=== PATIENT | female | born 1965 | race Caucasian/White ===

== ENCOUNTER 2017-08-02 11:34 | Inpatient (IN) ==
[2017-08-02 17:19] LABS: Basophils # 0.1 10*3/uL (0.0-0.2); Basophils % 0.6 % (0.0-0.8); Eosinophils # 0.1 10*3/uL (0.0-0.87); Eosinophils % 0.4 % (0.00-10.9); Hematocrit 23.7 VOL% (35.7-47.0); Hemoglobin 7.7 GM/DL (12.0-16.0); Immature Granulocytes % 1.5 %; Immature Granulocytes Absolute 0.33 #; Lymphocytes # 1.2 10*3/uL (1.4-4.0); Lymphocytes % 5.4 % (21.3-54.2); Mean Corpuscular HGB Conc 32.5 GM/DL (32-36); Mean Corpuscular Hemoglobin 29 PG (27-34); Mean Corpuscular Volume 88.1 FL (87-102); Mean Platelet Volume 8.5 FL (9.6-12.0); Monocytes % 4.7 % (1.7-12.7); Neutrophils # 18.9 10*3/uL (1.4-7.4); Neutrophils % 87.4 % (38.7-73.9); Platelet Count 354 T/CUMM (130-400); Red Blood Count 2.69 MC/CUMM (3.8-5.5); Red Cell Distribution Width 14.6 % (9.3-17.3); White Blood Count 21.6 T/CUMM (4-12)
[2017-08-02 17:43] LABS: Albumin 1.7 G/DL (3.4-5.0); Bilirubin,Direct 0.17 MG/DL (0.0-0.20); Bilirubin,Indirect 0.2 MG/DL (0.0-1.0); Bilirubin,Total 0.4 MG/DL (0.2-1.0); Calcium 7.8 MG/DL (8.5-10.1); Osmolality,Calculated 278.8 MOS/KG (273-304); Potassium 3.9 MMOL/L (3.5-5.1); Total Protein 5.3 G/DL (6.4-8.3)
[2017-08-02] MEDS ORDERED: ACETAMINOPHEN 325 MG TABLET PO PRN (18:09)
[2017-08-02] MEDS ORDERED: ONDANSETRON 4 MG/2 ML VIAL IV PRN (18:43)
[2017-08-02] MEDS ORDERED: MORPHINE 4 MG/1 ML VIAL IV PRN (18:45)
[2017-08-02 19:04] LABS: Lymphocytes 4 % (20-55); Platelet Estimate Normal; Segmented Neutrophils 95 % (50-85); Total Cells Counted 100
[2017-08-02] MEDS: SODIUM CHLORIDE 0.9% 1,000 ML IV SCH (19:24)
[2017-08-02] MEDS: HYDROmorphone 2 MG/1 ML VIAL IV PRN ×2 (19:43→23:53)
[2017-08-02 22:53] LABS: INR 1.2; PT Patient Result 12.5 SECS
[2017-08-02] MEDS: SODIUM BICARBONATE 650 MG TABLET PO SCH (23:53)
[2017-08-03] MEDS: ONDANSETRON 4 MG/2 ML VIAL IV PRN ×4 (00:46→20:22)
[2017-08-03] MEDS: HYDROmorphone 2 MG/1 ML VIAL IV PRN ×6 (05:47→20:22)
[2017-08-03] MEDS ORDERED: LEVOFLOXACIN INJ 500 MG in PREMIX 1 EACH IV ONE (06:30)
[2017-08-03] MEDS ORDERED: DIAZEPAM 5 MG TABLET PO ONE (07:25)
[2017-08-03] MEDS ORDERED: FAMOTIDINE 20 MG TABLET PO ONE (07:25)
[2017-08-03] MEDS ORDERED: LACTATED RINGERS 1,000 ML IV SCH (07:30)
[2017-08-03 08:34] LABS: Basophils # 0.1 10*3/uL (0.0-0.2); Basophils % 0.5 % (0.0-0.8); Eosinophils # 0.1 10*3/uL (0.0-0.87); Eosinophils % 0.3 % (0.00-10.9); Hemoglobin 7.3 GM/DL (12.0-16.0); Immature Granulocytes % 1.4 %; Immature Granulocytes Absolute 0.29 #; Lymphocytes # 1.1 10*3/uL (1.4-4.0); Lymphocytes % 5.4 % (21.3-54.2); Mean Corpuscular HGB Conc 31.7 GM/DL (32-36); Mean Corpuscular Hemoglobin 29 PG (27-34); Mean Corpuscular Volume 90.2 FL (87-102); Mean Platelet Volume 8.3 FL (9.6-12.0); Monocytes # 1.1 10*3/uL (0.11-0.8); Monocytes % 5.5 % (1.7-12.7); Neutrophils # 17.9 10*3/uL (1.4-7.4); Neutrophils % 86.9 % (38.7-73.9); Platelet Count 315 T/CUMM (130-400); Red Blood Count 2.55 MC/CUMM (3.8-5.5); Red Cell Distribution Width 14.6 % (9.3-17.3); White Blood Count 20.6 T/CUMM (4-12)
[2017-08-03 08:59] LABS: Albumin 1.3 G/DL (3.4-5.0); Bilirubin,Direct 0.1 MG/DL (0.0-0.20); Bilirubin,Indirect 0.5 MG/DL (0.0-1.0); Bilirubin,Total 0.6 MG/DL (0.2-1.0); Calcium 7.4 MG/DL (8.5-10.1); Osmolality,Calculated 275.1 MOS/KG (273-304)
[2017-08-03 09:26] LABS: Eosinophils 1 % (0-10); Lymphocytes 3 % (20-55); Segmented Neutrophils 93 % (50-85); Total Cells Counted 100
[2017-08-03 09:27] LABS: Burr Cells Few; Hypochromasia 1+; Microcytosis Slight; Platelet Estimate Normal
[2017-08-03 10:23] LABS: Neutrophils,Peritoneal Fluid 40 %; RBC,Peritoneal Fluid < 1 T/CUMM
[2017-08-03] MEDS ORDERED: SODIUM CHLORIDE 0.9% 250 ML IV SCH (10:30)
[2017-08-03] MEDS ORDERED: LEVOFLOXACIN INJ 100 ML IV ONE (11:08)
[2017-08-03] MEDS ORDERED: SUGAMMADEX 200 MG/2 ML VIAL IV ONE (11:44)
[2017-08-03] MEDS ORDERED: ONDANSETRON 4 MG/2 ML VIAL ONE ×2 (11:48→11:56)
[2017-08-03] MEDS ORDERED: HYDROmorphone 2 MG/1 ML VIAL ONE (11:48)
[2017-08-03] MEDS ORDERED: ONDANSETRON 4 MG/2 ML VIAL IV PRN (11:49)
[2017-08-03] MEDS ORDERED: fentaNYL 100 MCG/2 ML VIAL ONE (11:53)
[2017-08-03] MEDS ORDERED: MIDAZOLAM 2 MG/2 ML VIAL ONE (11:55)
[2017-08-03] MEDS ORDERED: SEVOFLURANE 1 UNIT/15 MINUTE INH ONE (11:55)
[2017-08-03] MEDS ORDERED: PROPOFOL 200 MG/20 ML VIAL IV ONE (11:55)
[2017-08-03] MEDS ORDERED: DEXAMETHASONE 4 MG/1 ML VIAL ONE (11:55)
[2017-08-03] MEDS ORDERED: GLYCOPYRROLATE 0.4 MG/2 ML VIAL ONE (11:56)
[2017-08-03] MEDS ORDERED: ROCURONIUM 100 MG/10 ML VIAL IV ONE (11:56)
[2017-08-03] MEDS ORDERED: SODIUM CHLORIDE 0.9% 100 ML IV ONE (11:56)
[2017-08-03] MEDS ORDERED: PHENYLEPHRINE 1 MG/10 ML SYRINGE IV ONE (11:56)
[2017-08-03] MEDS ORDERED: NEOSTIGMINE 10 MG/10 ML VIAL ONE (11:56)
[2017-08-03] MEDS: DEXTROSE 5% NACL 0.9% 1,000 ML IV SCH ×2 (12:33→20:14)
[2017-08-03] MEDS ORDERED: FLUCONAZOLE 200 MG TABLET PO ONE (13:14)
[2017-08-03] MEDS: SEVELAMER CARBONATE 800 MG TABLET PO SCH ×3 (13:16→16:44)
[2017-08-03] MEDS: SODIUM BICARBONATE 650 MG TABLET PO SCH ×2 (13:25→20:15)
[2017-08-03] MEDS: CALCITRIOL 0.25 MCG CAPSULE PO SCH (13:25)
[2017-08-03] MEDS: PANTOPRAZOLE 40 MG VIAL IV SCH (13:26)
[2017-08-03] MEDS ORDERED: DEXTROSE 50% 25 GM/50 ML VIAL IV PRN (13:58)
[2017-08-03] MEDS ORDERED: GLUCAGON 1 MG VIAL IM PRN (13:58)
[2017-08-03 14:02] LABS: Apearance,Urine CLOUDY (Clear); Bilirubin,Urine Negative (Negative); Blood, Urine Moderate mg/dL (Negative); Glucose,Urine (UA) Negative (Negative); Ketones,Urine Negative (Negative); Nitrite,Urine Negative (Negative); Protein,Urine Negative; RBC,Urine 15 /HPF (0-4); Squamous Epithelial Cell,Urine Occasional /HPF (0-10); Urine Color Straw (Yellow); Urine Specific Gravity 1.004 (1.001-1.035); Urine Urobilinogen < 2.0 EU/DL (0.2-1.0); WBC,Urine 300 /HPF (0-6)
[2017-08-03] MEDS ORDERED: LIDOCAINE 2% TOP JELLY 5 ML TUBE TOP ONE (16:14)
[2017-08-03] MEDS: BACITRACIN OINT 0.9 GM PACK TOP SCH (16:44)
[2017-08-03] MEDS: miSOPROStol 200 MCG TABLET PO SCH ×2 (16:44→20:15)
[2017-08-03] MEDS: SODIUM CHLORIDE 0.9% 1,000 ML IV SCH (19:51)
[2017-08-03] MEDS: ZINC OXIDE PASTE 113 GM TUBE TOP SCH (20:18)
[2017-08-04] MEDS: ONDANSETRON 4 MG/2 ML VIAL IV PRN ×5 (01:36→20:39)
[2017-08-04] MEDS: HYDROmorphone 2 MG/1 ML VIAL IV PRN ×5 (01:37→20:38)
[2017-08-04] MEDS: SODIUM CHLORIDE 0.9% 1,000 ML IV SCH ×2 (03:31→23:23)
[2017-08-04 06:50] LABS: Basophils % 0.3 % (0.0-0.8); Eosinophils % 0.1 % (0.00-10.9); Hematocrit 19.5 VOL% (35.7-47.0); Immature Granulocytes % 1.2 %; Immature Granulocytes Absolute 0.14 #; Lymphocytes # 0.7 10*3/uL (1.4-4.0); Lymphocytes % 6.3 % (21.3-54.2); Mean Corpuscular HGB Conc 32.3 GM/DL (32-36); Mean Corpuscular Hemoglobin 28 PG (27-34); Mean Corpuscular Volume 87.4 FL (87-102); Mean Platelet Volume 8.6 FL (9.6-12.0); Monocytes # 0.6 10*3/uL (0.11-0.8); Monocytes % 4.8 % (1.7-12.7); Neutrophils % 87.3 % (38.7-73.9); Platelet Count 261 T/CUMM (130-400); Red Blood Count 2.23 MC/CUMM (3.8-5.5); Red Cell Distribution Width 14.6 % (9.3-17.3); White Blood Count 11.4 T/CUMM (4-12)
[2017-08-04 07:00] LABS: Hemoglobin 6.3 GM/DL (12.0-16.0)
[2017-08-04 07:22] LABS: Albumin 1.4 G/DL (3.4-5.0); Osmolality,Calculated 283.7 MOS/KG (273-304); Potassium 3.9 MMOL/L (3.5-5.1)
[2017-08-04 07:27] LABS: Alanine Aminotransferase < 9 U/L (13-56); Albumin 1.6 G/DL (3.4-5.0); Alkaline Phosphatase 120 U/L (45-117); Aspartate Amino Transferase 4 U/L (0-37); Bilirubin,Indirect 0.5 MG/DL (0.0-1.0); Total Protein 4.4 G/DL (6.4-8.3)
[2017-08-04] MEDS: SODIUM BICARBONATE 650 MG TABLET PO SCH ×2 (08:51→20:32)
[2017-08-04] MEDS: PANTOPRAZOLE 40 MG VIAL IV SCH (08:51)
[2017-08-04] MEDS: SEVELAMER CARBONATE 800 MG TABLET PO SCH ×3 (08:51→17:13)
[2017-08-04] MEDS: miSOPROStol 200 MCG TABLET PO SCH ×4 (08:51→20:32)
[2017-08-04] MEDS ORDERED: SODIUM CHLORIDE 0.9% 1,000 ML IV PRN (08:52)
[2017-08-04] MEDS ORDERED: BACITRACIN OINT 0.9 GM PACK TOP SCH (09:00)
[2017-08-04] MEDS: ZINC OXIDE PASTE 113 GM TUBE TOP SCH ×2 (10:00→20:19)
[2017-08-04] MEDS: FUROSEMIDE 20 MG/2 ML VIAL IV PRN (15:28)
[2017-08-04] MEDS: DESITIN 4OZ/NYSTATIN 15 GRAM MIXTURE PASTE TOP SCH ×2 (15:52→20:19)
[2017-08-04] MEDS: BACITRACIN OINT 0.9 GM PACK TOP SCH (15:53)
[2017-08-04] MEDS: DEXTROSE 5% NACL 0.9% 1,000 ML IV SCH (19:02)
[2017-08-04 23:24] LABS: Hematocrit 31.2 VOL% (35.7-47.0); Hemoglobin 10.3 GM/DL (12.0-16.0)
[2017-08-05] MEDS: HYDROmorphone 2 MG/1 ML VIAL IV PRN ×6 (00:42→22:10)
[2017-08-05] MEDS: ONDANSETRON 4 MG/2 ML VIAL IV PRN ×5 (00:43→18:08)
[2017-08-05] MEDS: CIPROFLOXACIN INJ 400 MG in PREMIX 1 EACH IV SCH ×3 (00:43→20:12)
[2017-08-05] MEDS ORDERED: FUROSEMIDE 20 MG/2 ML VIAL IV ONE (02:00)
[2017-08-05] MEDS: FUROSEMIDE 20 MG/2 ML VIAL IV PRN (02:00)
[2017-08-05 06:32] LABS: Basophils # 0.1 10*3/uL (0.0-0.2); Basophils % 0.7 % (0.0-0.8); Eosinophils # 0.3 10*3/uL (0.0-0.87); Eosinophils % 2.2 % (0.00-10.9); Hemoglobin 10.4 GM/DL (12.0-16.0); Immature Granulocytes % 1.6 %; Immature Granulocytes Absolute 0.19 #; Lymphocytes # 1.8 10*3/uL (1.4-4.0); Lymphocytes % 14.9 % (21.3-54.2); Mean Corpuscular HGB Conc 33.5 GM/DL (32-36); Mean Corpuscular Hemoglobin 28 PG (27-34); Mean Corpuscular Volume 83.6 FL (87-102); Mean Platelet Volume 8.6 FL (9.6-12.0); Monocytes # 0.9 10*3/uL (0.11-0.8); Monocytes % 7.5 % (1.7-12.7); Neutrophils # 8.8 10*3/uL (1.4-7.4); Neutrophils % 73.1 % (38.7-73.9); Platelet Count 243 T/CUMM (130-400); Red Blood Count 3.71 MC/CUMM (3.8-5.5); Red Cell Distribution Width 14.8 % (9.3-17.3)
[2017-08-05 06:57] LABS: Albumin 1.4 G/DL (3.4-5.0); Albumin 1.5 G/DL (3.4-5.0); Bilirubin,Direct 0.15 MG/DL (0.0-0.20); Bilirubin,Indirect 0.5 MG/DL (0.0-1.0); Bilirubin,Total 0.6 MG/DL (0.2-1.0); Calcium 7.3 MG/DL (8.5-10.1); Osmolality,Calculated 274.2 MOS/KG (273-304); Potassium 3.4 MMOL/L (3.5-5.1); Total Protein 4.6 G/DL (6.4-8.3)
[2017-08-05] MEDS ORDERED: POTASSIUM CHLORIDE 20 MEQ TABLET PO PRN (07:56)
[2017-08-05] MEDS: PANTOPRAZOLE 40 MG VIAL IV SCH (09:33)
[2017-08-05] MEDS: SODIUM BICARBONATE 650 MG TABLET PO SCH ×2 (09:33→20:14)
[2017-08-05] MEDS: SEVELAMER CARBONATE 800 MG TABLET PO SCH ×3 (09:34→18:23)
[2017-08-05] MEDS: BACITRACIN OINT 0.9 GM PACK TOP SCH (09:34)
[2017-08-05] MEDS: miSOPROStol 200 MCG TABLET PO SCH ×4 (09:34→20:14)
[2017-08-05] MEDS: FLUCONAZOLE 200 MG TABLET PO SCH (09:34)
[2017-08-05] MEDS: ZINC OXIDE PASTE 113 GM TUBE TOP SCH ×2 (09:36→21:45)
[2017-08-05] MEDS: DESITIN 4OZ/NYSTATIN 15 GRAM MIXTURE PASTE TOP SCH ×2 (09:36→21:45)
[2017-08-05] MEDS: DEXTROSE 5% NACL 0.9% 1,000 ML IV SCH (12:38)
[2017-08-05] MEDS ORDERED: ALBUMIN 25% 25 GM in PREMIX 1 EACH IV SCH (14:00)
[2017-08-05] MEDS: ALBUMIN 25% 25 GM in PREMIX 1 EACH IV SCH (15:45)
[2017-08-05] MEDS: PROMETHAZINE 25 MG/1 ML VIAL IM PRN ×2 (15:45→22:11)
[2017-08-06] MEDS: ALBUMIN 25% 25 GM in PREMIX 1 EACH IV SCH ×2 (03:08→13:39)
[2017-08-06] MEDS: PROMETHAZINE 25 MG/1 ML VIAL IM PRN ×4 (03:19→16:22)
[2017-08-06] MEDS: HYDROmorphone 2 MG/1 ML VIAL IV PRN ×5 (03:19→21:18)
[2017-08-06 07:58] LABS: Basophils # 0.1 10*3/uL (0.0-0.2); Basophils % 0.6 % (0.0-0.8); Eosinophils # 0.4 10*3/uL (0.0-0.87); Eosinophils % 3.4 % (0.00-10.9); Hematocrit 26.2 VOL% (35.7-47.0); Hemoglobin 8.9 GM/DL (12.0-16.0); Immature Granulocytes % 1.4 %; Immature Granulocytes Absolute 0.14 #; Lymphocytes # 1.1 10*3/uL (1.4-4.0); Mean Corpuscular Hemoglobin 28 PG (27-34); Mean Corpuscular Volume 83.2 FL (87-102); Monocytes # 0.6 10*3/uL (0.11-0.8); Monocytes % 5.9 % (1.7-12.7); Neutrophils % 77.7 % (38.7-73.9); Platelet Count 196 T/CUMM (130-400); Red Blood Count 3.15 MC/CUMM (3.8-5.5); Red Cell Distribution Width 14.9 % (9.3-17.3); White Blood Count 10.3 T/CUMM (4-12)
[2017-08-06 08:25] LABS: Albumin 2.2 G/DL (3.4-5.0)
[2017-08-06 08:29] LABS: Alanine Aminotransferase < 6 U/L (13-56); Albumin 2.5 G/DL (3.4-5.0); Alkaline Phosphatase 78 U/L (45-117); Aspartate Amino Transferase 7 U/L (0-37); Bilirubin,Indirect 0.6 MG/DL (0.0-1.0); Blood Urea Nitrogen 36 MG/DL (7-18); Calcium 7.1 MG/DL (8.5-10.1); Glucose 76 MG/DL (74-106); Osmolality,Calculated 274.2 MOS/KG (273-304); Potassium 2.9 MMOL/L (3.5-5.1); Sodium 134 MMOL/L (136-145); Total Protein 4.3 G/DL (6.4-8.3)
[2017-08-06] MEDS: SODIUM CHLORIDE 0.9% 1,000 ML IV SCH (09:14)
[2017-08-06] MEDS: FLUCONAZOLE 200 MG TABLET PO SCH (09:15)
[2017-08-06] MEDS: SEVELAMER CARBONATE 800 MG TABLET PO SCH ×2 (09:15→11:43)
[2017-08-06] MEDS: SODIUM BICARBONATE 650 MG TABLET PO SCH ×4 (09:15→20:18)
[2017-08-06] MEDS: CALCITRIOL 0.25 MCG CAPSULE PO SCH (09:15)
[2017-08-06] MEDS: miSOPROStol 200 MCG TABLET PO SCH ×4 (09:15→20:18)
[2017-08-06] MEDS: PANTOPRAZOLE 40 MG VIAL IV SCH (09:16)
[2017-08-06] MEDS: ZINC OXIDE PASTE 113 GM TUBE TOP SCH ×2 (09:20→21:26)
[2017-08-06] MEDS: DESITIN 4OZ/NYSTATIN 15 GRAM MIXTURE PASTE TOP SCH ×2 (09:20→21:26)
[2017-08-06] MEDS ORDERED: MAGNESIUM SULF RIDER 2 GM in PREMIX 1 EACH IV PRN (10:20)
[2017-08-06] MEDS ORDERED: MAGNESIUM SULF RIDER 4 GM in PREMIX 1 EACH IV PRN (10:20)
[2017-08-06] MEDS: ONDANSETRON 4 MG/2 ML VIAL IV PRN ×3 (10:28→21:23)
[2017-08-06] MEDS: BACITRACIN OINT 0.9 GM PACK TOP SCH (10:28)
[2017-08-06] MEDS: POTASSIUM CHLORIDE RIDER 10 MEQ in PREMIX 1 EACH IV PRN ×4 (10:50→22:31)
[2017-08-06] MEDS: SPIRONOLACTONE 50 MG TABLET PO SCH (13:30)
[2017-08-06] MEDS: CIPROFLOXACIN INJ 400 MG in PREMIX 1 EACH IV SCH (15:29)
[2017-08-06] MEDS ORDERED: PROMETHAZINE 25 MG/1 ML VIAL IM PRN (17:24)
[2017-08-06] MEDS: METOCLOPRAMIDE 10 MG/2 ML VIAL IV SCH (18:48)
[2017-08-06] MEDS: POTASSIUM CHLORIDE 20 MEQ TABLET PO SCH (20:18)
[2017-08-07] MEDS: METOCLOPRAMIDE 10 MG/2 ML VIAL IV SCH ×3 (00:42→11:58)
[2017-08-07] MEDS: POTASSIUM CHLORIDE RIDER 10 MEQ in PREMIX 1 EACH IV PRN (00:44)
[2017-08-07] MEDS: HYDROmorphone 2 MG/1 ML VIAL IV PRN ×4 (01:21→20:43)
[2017-08-07] MEDS: ONDANSETRON 4 MG/2 ML VIAL IV PRN ×4 (01:24→18:41)
[2017-08-07] MEDS: ALBUMIN 25% 25 GM in PREMIX 1 EACH IV SCH ×3 (05:28→22:41)
[2017-08-07 07:05] LABS: Basophils # 0.1 10*3/uL (0.0-0.2); Basophils % 0.4 % (0.0-0.8); Eosinophils # 0.5 10*3/uL (0.0-0.87); Eosinophils % 3.6 % (0.00-10.9); Hematocrit 28.8 VOL% (35.7-47.0); Hemoglobin 9.9 GM/DL (12.0-16.0); Immature Granulocytes % 1.6 %; Immature Granulocytes Absolute 0.22 #; Lymphocytes # 1.5 10*3/uL (1.4-4.0); Lymphocytes % 11.1 % (21.3-54.2); Mean Corpuscular HGB Conc 34.4 GM/DL (32-36); Mean Corpuscular Hemoglobin 28 PG (27-34); Mean Corpuscular Volume 82.1 FL (87-102); Mean Platelet Volume 9.1 FL (9.6-12.0); Monocytes # 0.7 10*3/uL (0.11-0.8); Monocytes % 5.3 % (1.7-12.7); Neutrophils # 10.4 10*3/uL (1.4-7.4); Platelet Count 189 T/CUMM (130-400); Red Blood Count 3.51 MC/CUMM (3.8-5.5); Red Cell Distribution Width 14.6 % (9.3-17.3); White Blood Count 13.4 T/CUMM (4-12)
[2017-08-07 07:30] LABS: Apearance,Urine CLOUDY (Clear); Bacteria,Urine Occasional /HPF (Few); Bilirubin,Urine Negative (Negative); Blood, Urine Large mg/dL (Negative); Glucose,Urine (UA) Negative (Negative); Ketones,Urine Negative (Negative); Mucus,Urine Occasional /LPF (Occasional); Nitrite,Urine Negative (Negative); Protein,Urine 100 MG/DL; RBC,Urine 127 /HPF (0-4); Urine Color Yellow (Yellow); Urine Specific Gravity 1.008 (1.001-1.035); Urine Urobilinogen < 2.0 EU/DL (0.2-1.0); WBC,Urine 179 /HPF (0-6)
[2017-08-07 07:39] LABS: Calcium 7.1 MG/DL (8.5-10.1); Osmolality,Calculated 273.2 MOS/KG (273-304); Potassium 3.7 MMOL/L (3.5-5.1)
[2017-08-07] MEDS: SODIUM BICARBONATE 650 MG TABLET PO SCH ×3 (09:37→20:32)
[2017-08-07] MEDS: FLUCONAZOLE 200 MG TABLET PO SCH (09:37)
[2017-08-07] MEDS: PANTOPRAZOLE 40 MG VIAL IV SCH (09:38)
[2017-08-07] MEDS: SPIRONOLACTONE 50 MG TABLET PO SCH (09:38)
[2017-08-07] MEDS: BACITRACIN OINT 0.9 GM PACK TOP SCH (09:38)
[2017-08-07] MEDS: POTASSIUM CHLORIDE 20 MEQ TABLET PO SCH ×2 (09:38→20:32)
[2017-08-07] MEDS: miSOPROStol 200 MCG TABLET PO SCH ×4 (09:38→20:32)
[2017-08-07] MEDS: DESITIN 4OZ/NYSTATIN 15 GRAM MIXTURE PASTE TOP SCH ×2 (09:42→20:46)
[2017-08-07] MEDS: ZINC OXIDE PASTE 113 GM TUBE TOP SCH ×2 (09:42→20:33)
[2017-08-07] MEDS: PROMETHAZINE 25 MG/1 ML VIAL IM PRN ×2 (11:49→20:27)
[2017-08-07] MEDS: SODIUM CHLORIDE 0.9% 1,000 ML IV SCH (12:04)
[2017-08-07 12:51] LABS: Smooth Muscle Antibody Negative (Negative)
[2017-08-07 16:21] LABS: Myeloperoxidase Antibody < 0.2 U
[2017-08-07] MEDS: METOCLOPRAMIDE 10 MG/10 ML UDCUP PO SCH ×2 (16:23→20:31)
[2017-08-08] MEDS: ONDANSETRON 4 MG/2 ML VIAL IV PRN ×5 (01:07→23:56)
[2017-08-08] MEDS: PROMETHAZINE 25 MG/1 ML VIAL IM PRN (02:57)
[2017-08-08] MEDS: HYDROmorphone 2 MG/1 ML VIAL IV PRN (02:59)
[2017-08-08] MEDS: ALBUMIN 25% 25 GM in PREMIX 1 EACH IV SCH ×3 (05:32→21:35)
[2017-08-08 06:55] LABS: Basophils # 0.1 10*3/uL (0.0-0.2); Basophils % 0.5 % (0.0-0.8); Eosinophils # 0.7 10*3/uL (0.0-0.87); Eosinophils % 5.1 % (0.00-10.9); Hematocrit 26.1 VOL% (35.7-47.0); Hemoglobin 8.9 GM/DL (12.0-16.0); Immature Granulocytes % 1.6 %; Immature Granulocytes Absolute 0.23 #; Lymphocytes # 1.4 10*3/uL (1.4-4.0); Lymphocytes % 9.8 % (21.3-54.2); Mean Corpuscular HGB Conc 34.1 GM/DL (32-36); Mean Corpuscular Hemoglobin 28 PG (27-34); Mean Corpuscular Volume 82.9 FL (87-102); Mean Platelet Volume 9.6 FL (9.6-12.0); Monocytes # 0.7 10*3/uL (0.11-0.8); Monocytes % 4.9 % (1.7-12.7); Neutrophils # 11.2 10*3/uL (1.4-7.4); Neutrophils % 78.1 % (38.7-73.9); Platelet Count 139 T/CUMM (130-400); Red Blood Count 3.15 MC/CUMM (3.8-5.5); Red Cell Distribution Width 14.6 % (9.3-17.3); White Blood Count 14.4 T/CUMM (4-12)
[2017-08-08 07:04] LABS: Alanine Aminotransferase < 6 U/L (13-56); Albumin 2.9 G/DL (3.4-5.0); Alkaline Phosphatase 65 U/L (45-117); Aspartate Amino Transferase 6 U/L (0-37); Blood Urea Nitrogen 31 MG/DL (7-18); Calcium 7.5 MG/DL (8.5-10.1); Glucose 78 MG/DL (74-106); Osmolality,Calculated 275.1 MOS/KG (273-304); Potassium 3.9 MMOL/L (3.5-5.1); Sodium 135 MMOL/L (136-145); Total Protein 4.4 G/DL (6.4-8.3)
[2017-08-08] MEDS ORDERED: PANTOPRAZOLE 40 MG TABLET PO SCH (09:00)
[2017-08-08] MEDS: SODIUM CHLORIDE 0.9% 1,000 ML IV SCH (09:21)
[2017-08-08] MEDS: SPIRONOLACTONE 50 MG TABLET PO SCH (09:21)
[2017-08-08] MEDS: ZINC OXIDE PASTE 113 GM TUBE TOP SCH ×2 (09:22→21:04)
[2017-08-08] MEDS: BACITRACIN OINT 0.9 GM PACK TOP SCH (09:24)
[2017-08-08] MEDS: DESITIN 4OZ/NYSTATIN 15 GRAM MIXTURE PASTE TOP SCH ×2 (09:25→21:03)
[2017-08-08] MEDS: FLUCONAZOLE 200 MG TABLET PO SCH (10:25)
[2017-08-08] MEDS: SODIUM BICARBONATE 650 MG TABLET PO SCH ×3 (10:25→21:01)
[2017-08-08] MEDS: METOCLOPRAMIDE 10 MG/10 ML UDCUP PO SCH ×4 (10:25→21:03)
[2017-08-08] MEDS: CALCITRIOL 0.25 MCG CAPSULE PO SCH (10:26)
[2017-08-08] MEDS: miSOPROStol 200 MCG TABLET PO SCH ×4 (10:26→21:04)
[2017-08-08] MEDS: POTASSIUM CHLORIDE 20 MEQ TABLET PO SCH ×2 (10:26→21:03)
[2017-08-08] MEDS: CITRIC ACID/SODIUM CITRATE 30 ML UDCUP PO SCH ×3 (10:27→21:04)
[2017-08-08] MEDS: MAGNESIUM CHLORIDE 64 MG TABLET PO SCH ×2 (14:12→21:02)
[2017-08-08] MEDS ORDERED: PROMETHAZINE 25 MG SUPP RECTAL ONE (17:30)
[2017-08-08] MEDS: SODIUM BICARB INJ 150 MEQ in DEXTROSE 5% 850 ML IV SCH (20:00)
[2017-08-08] MEDS ORDERED: ZALEPLON 5 MG CAPSULE PO SCH (21:00)
[2017-08-08] MEDS: PANTOPRAZOLE 40 MG TABLET PO SCH (21:03)
[2017-08-09] MEDS ORDERED: PROMETHAZINE 25 MG SUPP RECTAL ONE (01:23)
[2017-08-09] MEDS: ONDANSETRON 4 MG/2 ML VIAL IV PRN ×2 (06:10→16:42)
[2017-08-09 07:21] LABS: Basophils # 0.1 10*3/uL (0.0-0.2); Basophils % 0.4 % (0.0-0.8); Hematocrit 25.2 VOL% (35.7-47.0); Hemoglobin 8.8 GM/DL (12.0-16.0); Immature Granulocytes % 1.4 %; Immature Granulocytes Absolute 0.16 #; Lymphocytes # 1.5 10*3/uL (1.4-4.0); Lymphocytes % 13.1 % (21.3-54.2); Mean Corpuscular HGB Conc 34.9 GM/DL (32-36); Mean Corpuscular Hemoglobin 28 PG (27-34); Mean Corpuscular Volume 80.5 FL (87-102); Mean Platelet Volume 9.5 FL (9.6-12.0); Monocytes # 0.6 10*3/uL (0.11-0.8); Monocytes % 4.9 % (1.7-12.7); Neutrophils # 8.3 10*3/uL (1.4-7.4); Neutrophils % 71.2 % (38.7-73.9); Platelet Count 168 T/CUMM (130-400); Red Blood Count 3.13 MC/CUMM (3.8-5.5); Red Cell Distribution Width 14.6 % (9.3-17.3); White Blood Count 11.6 T/CUMM (4-12)
[2017-08-09 07:44] LABS: Alanine Aminotransferase < 6 U/L (13-56); Albumin 2.9 G/DL (3.4-5.0); Alkaline Phosphatase 59 U/L (45-117); Aspartate Amino Transferase 6 U/L (0-37); Blood Urea Nitrogen 30 MG/DL (7-18); Calcium 7.5 MG/DL (8.5-10.1); Glucose 67 MG/DL (74-106); Osmolality,Calculated 276.8 MOS/KG (273-304); Potassium 3.4 MMOL/L (3.5-5.1); Sodium 137 MMOL/L (136-145); Total Protein 4.3 G/DL (6.4-8.3)
[2017-08-09] MEDS ORDERED: CITRIC ACID/SODIUM CITRATE 30 ML UDCUP PO ONE (07:48)
[2017-08-09] MEDS: miSOPROStol 200 MCG TABLET PO SCH ×4 (08:29→21:42)
[2017-08-09] MEDS: METOCLOPRAMIDE 10 MG/10 ML UDCUP PO SCH (08:29)
[2017-08-09] MEDS: SPIRONOLACTONE 50 MG TABLET PO SCH ×2 (08:30→12:35)
[2017-08-09] MEDS: SODIUM BICARBONATE 650 MG TABLET PO SCH ×4 (08:34→21:43)
[2017-08-09] MEDS: MAGNESIUM CHLORIDE 64 MG TABLET PO SCH ×3 (08:34→21:43)
[2017-08-09] MEDS: DESITIN 4OZ/NYSTATIN 15 GRAM MIXTURE PASTE TOP SCH ×2 (08:34→21:43)
[2017-08-09] MEDS: FLUCONAZOLE 200 MG TABLET PO SCH (08:35)
[2017-08-09] MEDS: BACITRACIN OINT 0.9 GM PACK TOP SCH ×2 (08:35→12:37)
[2017-08-09] MEDS: PANTOPRAZOLE 40 MG TABLET PO SCH (08:35)
[2017-08-09] MEDS: POTASSIUM CHLORIDE 20 MEQ TABLET PO SCH ×3 (08:35→21:43)
[2017-08-09] MEDS: ZINC OXIDE PASTE 113 GM TUBE TOP SCH ×2 (08:35→21:42)
[2017-08-09] MEDS ORDERED: LIDOCAINE 100 MG/5 ML SYRINGE ONE (09:00)
[2017-08-09] MEDS ORDERED: PROPOFOL 200 MG/20 ML VIAL IV ONE (09:00)
[2017-08-09] MEDS ORDERED: POTASSIUM CHLORIDE 20 MEQ TABLET PO ONE (09:36)
[2017-08-09] MEDS: CITRIC ACID/SODIUM CITRATE 30 ML UDCUP PO SCH ×3 (11:49→21:42)
[2017-08-09] MEDS: NYSTATIN/TRIAMCINOLONE CREAM 15 GM TUBE TOP SCH ×2 (12:37→21:42)
[2017-08-09] MEDS: SODIUM BICARB INJ 150 MEQ in DEXTROSE 5% 850 ML IV SCH ×2 (12:40→16:41)
[2017-08-09] MEDS: FLUCONAZOLE INJ 200 MG in PREMIX 1 EACH IV SCH (12:41)
[2017-08-09] MEDS: PANTOPRAZOLE 40 MG VIAL IV SCH ×3 (12:41→21:39)
[2017-08-09] MEDS: SODIUM CHLORIDE 0.9% 1,000 ML IV SCH (15:53)
[2017-08-09] MEDS ORDERED: TEMAZEPAM 15 MG CAPSULE PO PRN (16:57)
[2017-08-09] MEDS ORDERED: LORazepam 2 MG/1 ML VIAL IM ONE (16:58)
[2017-08-09] MEDS ORDERED: PROMETHAZINE 25 MG SUPP RECTAL SCH ×2 (17:00→21:00)
[2017-08-09] MEDS: TEMAZEPAM 15 MG CAPSULE PO SCH (21:39)
[2017-08-10] MEDS: SODIUM BICARB INJ 150 MEQ in DEXTROSE 5% 850 ML IV SCH ×2 (04:25→22:02)
[2017-08-10] MEDS: miSOPROStol 200 MCG TABLET PO SCH ×4 (09:39→22:00)
[2017-08-10] MEDS: CALCITRIOL 0.25 MCG CAPSULE PO SCH (09:40)
[2017-08-10] MEDS: PANTOPRAZOLE 40 MG VIAL IV SCH ×2 (09:40→22:01)
[2017-08-10] MEDS: POTASSIUM CHLORIDE 20 MEQ TABLET PO SCH ×2 (09:40→22:01)
[2017-08-10] MEDS: MAGNESIUM CHLORIDE 64 MG TABLET PO SCH ×2 (09:40→22:00)
[2017-08-10] MEDS: SPIRONOLACTONE 50 MG TABLET PO SCH (09:40)
[2017-08-10] MEDS: FLUCONAZOLE INJ 200 MG in PREMIX 1 EACH IV SCH (09:40)
[2017-08-10] MEDS: SODIUM BICARBONATE 650 MG TABLET PO SCH ×3 (09:40→22:01)
[2017-08-10] MEDS: ZINC OXIDE PASTE 113 GM TUBE TOP SCH ×2 (09:41→22:03)
[2017-08-10] MEDS: DESITIN 4OZ/NYSTATIN 15 GRAM MIXTURE PASTE TOP SCH ×2 (09:41→22:03)
[2017-08-10] MEDS: NYSTATIN/TRIAMCINOLONE CREAM 15 GM TUBE TOP SCH ×2 (09:41→22:03)
[2017-08-10] MEDS: CITRIC ACID/SODIUM CITRATE 30 ML UDCUP PO SCH ×3 (09:45→22:03)
[2017-08-10] MEDS: METOCLOPRAMIDE 10 MG/2 ML VIAL IV SCH ×2 (12:09→17:56)
[2017-08-10] MEDS: BACITRACIN OINT 0.9 GM PACK TOP SCH (12:12)
[2017-08-10 13:01] LABS: Basophils # 0.1 10*3/uL (0.0-0.2); Basophils % 0.6 % (0.0-0.8); Eosinophils # 0.8 10*3/uL (0.0-0.87); Eosinophils % 5.1 % (0.00-10.9); Hematocrit 28.2 VOL% (35.7-47.0); Hemoglobin 9.4 GM/DL (12.0-16.0); Immature Granulocytes % 1.3 %; Lymphocytes # 1.2 10*3/uL (1.4-4.0); Lymphocytes % 7.6 % (21.3-54.2); Mean Corpuscular HGB Conc 33.3 GM/DL (32-36); Mean Corpuscular Hemoglobin 28 PG (27-34); Mean Corpuscular Volume 83.4 FL (87-102); Monocytes # 0.8 10*3/uL (0.11-0.8); Monocytes % 5.3 % (1.7-12.7); Neutrophils # 12.7 10*3/uL (1.4-7.4); Neutrophils % 80.1 % (38.7-73.9); Red Blood Count 3.38 MC/CUMM (3.8-5.5); Red Cell Distribution Width 14.7 % (9.3-17.3)
[2017-08-10 13:02] LABS: Platelet Count 235 T/CUMM (130-400); White Blood Count 15.8 T/CUMM (4-12)
[2017-08-10 13:12] LABS: Alanine Aminotransferase < 9 U/L (13-56); Albumin 2.7 G/DL (3.4-5.0); Alkaline Phosphatase 84 U/L (45-117); Aspartate Amino Transferase 8 U/L (0-37); Blood Urea Nitrogen 30 MG/DL (7-18); Calcium 7.3 MG/DL (8.5-10.1); Glucose 81 MG/DL (74-106); Osmolality,Calculated 279.7 MOS/KG (273-304); Potassium 4.5 MMOL/L (3.5-5.1); Sodium 138 MMOL/L (136-145); Total Protein 4.5 G/DL (6.4-8.3)
[2017-08-10] MEDS ORDERED: LORazepam 2 MG/1 ML VIAL IM ONE (16:45)
[2017-08-10] MEDS: TEMAZEPAM 15 MG CAPSULE PO SCH (22:00)
[2017-08-10] MEDS: ONDANSETRON 4 MG/2 ML VIAL IV PRN (22:01)
[2017-08-11] MEDS: METOCLOPRAMIDE 10 MG/2 ML VIAL IV SCH ×2 (02:44→06:50)
[2017-08-11 06:28] LABS: Basophils # 0.1 10*3/uL (0.0-0.2); Basophils % 0.5 % (0.0-0.8); Eosinophils # 0.6 10*3/uL (0.0-0.87); Eosinophils % 3.8 % (0.00-10.9); Hematocrit 25.8 VOL% (35.7-47.0); Hemoglobin 8.5 GM/DL (12.0-16.0); Immature Granulocytes Absolute 0.14 #; Lymphocytes # 1.8 10*3/uL (1.4-4.0); Lymphocytes % 12.5 % (21.3-54.2); Mean Corpuscular HGB Conc 32.9 GM/DL (32-36); Mean Corpuscular Hemoglobin 27 PG (27-34); Mean Corpuscular Volume 83.2 FL (87-102); Mean Platelet Volume 10.5 FL (9.6-12.0); Monocytes # 0.8 10*3/uL (0.11-0.8); Monocytes % 5.5 % (1.7-12.7); Neutrophils # 11.3 10*3/uL (1.4-7.4); Neutrophils % 76.7 % (38.7-73.9); Platelet Count 236 T/CUMM (130-400); Red Cell Distribution Width 14.7 % (9.3-17.3); White Blood Count 14.7 T/CUMM (4-12)
[2017-08-11] MEDS: SODIUM BICARB INJ 150 MEQ in DEXTROSE 5% 850 ML IV SCH (06:51)
[2017-08-11 07:04] LABS: Albumin 2.5 G/DL (3.4-5.0); Calcium 7.1 MG/DL (8.5-10.1); Potassium 4.3 MMOL/L (3.5-5.1)
[2017-08-11] MEDS: PANTOPRAZOLE 40 MG VIAL IV SCH (10:42)
[2017-08-11] MEDS: miSOPROStol 200 MCG TABLET PO SCH (10:43)
[2017-08-11] MEDS: SPIRONOLACTONE 50 MG TABLET PO SCH (10:43)
[2017-08-11] MEDS: SODIUM BICARBONATE 650 MG TABLET PO SCH (10:43)
[2017-08-11] MEDS: MAGNESIUM CHLORIDE 64 MG TABLET PO SCH (10:43)
[2017-08-11] MEDS: BACITRACIN OINT 0.9 GM PACK TOP SCH (13:12)
[2017-08-11] MEDS: CITRIC ACID/SODIUM CITRATE 30 ML UDCUP PO SCH (13:12)
[2017-08-11] MEDS: FLUCONAZOLE INJ 200 MG in PREMIX 1 EACH IV SCH (13:12)
[2017-08-11] MEDS: ZINC OXIDE PASTE 113 GM TUBE TOP SCH (13:12)
[2017-08-11] MEDS: DESITIN 4OZ/NYSTATIN 15 GRAM MIXTURE PASTE TOP SCH (13:13)
[2017-08-11] MEDS: POTASSIUM CHLORIDE 20 MEQ TABLET PO SCH (13:13)
[2017-08-11] MEDS: NYSTATIN/TRIAMCINOLONE CREAM 15 GM TUBE TOP SCH (13:13)
[2017-08-11 13:20] VITALS: BP 114/83
== END 2017-08-11 12:20 | disposition home health service (06) | DRG 694 ==
LOC: SUATTDRO 14:52 → N.2W 14:52 → N.5E 16:22
PROVIDERS: ADMIT Internal Medicine; ATTEND Hospitalist